=== PATIENT | male | born 1945 | race African-American/Black ===

== ENCOUNTER 2016-10-30 19:54 | Emergency (ER) | payer OTHER ==
[2016-10-30] MEDS ORDERED: CATAPRES PO ONE (20:41)
[2016-10-30 21:42] LABS: MANUAL DIFF NEEDED? NO
[2016-10-30 21:44] LABS: BASO% 0.6 % (0.0-0.8); EOS# 0.26 X1000 (0.0-0.7); EOS% 5.3 % (0.0-10.0); HEMATOCRIT 36.6 % (42.0-52.0); HEMOGLOBIN 12.3 g/dL (14.0-18.0); IMM GRAN# 0.01 X1000 (0.0-0.04); IMM GRAN% 0.2 % (0.0-0.5); LYMPH# 1.71 X1000 (1.2-3.4); LYMPH% 34.8 % (20.5-51.1); MCH 28.5 PG (27-31); MCHC 33.6 g/dL (33-37); MCV 84.9 FL (81-99); MONO# 0.31 X1000 (0.11-0.59); MONO% 6.3 % (1.7-9.3); MPV 10.4 FL (7.4-10.4); NEUT% 52.8 % (42.2-75.2); PLT 220 X1000 (130-400); RBC 4.31 XMIL (4.7-6.1)
[2016-10-30 22:09] LABS: ALBUMIN 3.7 g/dL (3.5-5.0); CALCIUM 9.6 mg/dL (8.8-10.2); POTASSIUM 2.7 mmol/L (3.5-5.1); TOTAL BILIRUBIN 0.2 mg/dL (0.20-1.00); TOTAL PROTEIN 6.5 g/dL (6.3-8.3)
[2016-10-30] MEDS ORDERED: MICRO-K PO ONE (22:16)
--- NOTE | 2016-10-30 22:21 | PROVIDER DOCUMENTATION ---
HPI-General Adult - General Chief Complaint: B/P Problems Stated Complaint: B/P PROBLEMS Time Seen by Provider: 10/30/16 20:40 Source: patient Allergies/Adverse Reactions: Patient Allergies Allergy/AdvReac Type Severity Reaction Status Date / Time No Known Allergies Allergy Verified 10/25/16 05:28 Home Medications: Hydrochlorothiazide [Microzide] 12.5 mg PO DAILY 08/08/12 Simvastatin [Zocor] 20 mg PO DAILY 11/17/12 Aspirin 1 tab PO DAILY 06/26/15 Esomeprazole Magnesium [Nexium] 40 mg PO DAILY 11/24/15 Fluticasone Propionate [Flonase Allergy Relief] 9.9 ml NS DIRECTED 06/09/16 Hydrocodone Bit/Acetaminophen [Hydrocodon-Acetaminophn 10-325] 1 each PO TID PRN 06/09/16 Losartan [Cozaar] 50 mg PO DAILY 06/09/16 Metformin [Glucophage] 500 mg PO BID CC 06/09/16 - History of Present Illness -Gen Adult Nature of Presenting Problems: 70 year old M presents to the ED with a cc of high blood pressure. 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 Pt states that he takes his medications daily. Location of Pain/Injury: reports: none Pain Radiation: reports: no radiation Quality of Pain: reports: none Severity: reports: mild Onset/Duration: reports: this evening Timing: reports: still present Context/Activities at Onset: reports: none Modifying Factors: improves with: nothing Associated Symptoms: reports: other (light headed) Similar Symptoms Previously?: No Recently seen or treated by another doctor?: No Review of Systems - Adult - REVIEW OF SYSTEMS - ADULT Constitutional: denies: chills, fever Eyes: reports: no symptoms reported Ears, Nose, Mouth & Throat: reports: no symptoms reported Cardiovascular: denies: chest pain, palpitations Respiratory: denies: cough, shortness of breath Gastrointestinal: denies: nausea, vomiting Genitourinary: reports: no symptoms reported Musculoskeletal: denies: back pain, neck pain Integumentary: denies: skin sores/ulcer, skin thickening Neurological: reports: other (light headed). denies: headache/migraines Psychiatric: reports: no symptoms reported Endocrine: reports: no symptoms reported Hematologic/Lymphatic: reports: no symptoms reported Allergic/Immunologic: reports: no symptoms reported All Other Systems: Reviewed and Negative Past History - Adult - PAST MEDICAL HISTORY-ADULT Review of Records: reports: Nursing Assessment Review, Medications Reviewed Major Childhood Illnesses: reports: denies history Cardiovascular: reports: HTN, hyperlipidemia Respiratory: denies: COPD Gastrointestinal: reports: GERD Obstetrical/Gynecological: reports: denies history Genitourinary: reports: denies history Musculoskeletal: reports: intervertebral disc disease, chronic pain Neurological: reports: denies history Endocrine/Immune: reports: Diabetes - PRIOR SURGERIES/PROCEDURES Surgical/Procedure History: reports: none - IMMUNIZATION STATUS Childhood Immunizations: See Nurse Assessment Flu Vaccine: See Nurse Assessment - FAMILY HISTORY Family History: reviewed, not pertinent - SOCIAL HISTORY Smoking: cigar, less than 1 pack/day Provider spent 3-5 mins advising pt. on dangers of tobacco.: Discussed manners to quit use, and f/u contacts for add'l counseling. Substance Use: none/never Alcohol Use Frequency: never Physical Exam-General - PHYSICAL EXAM-ADULT Initial Vital Signs Reviewed: Yes - CONSTITUTIONAL General Appearance: appears well, alert, no apparent distress - RESPIRATORY Respiratory: chest non-tender, lungs clear, normal breath sounds - CARDIOVASCULAR Cardiovascular: normal peripheral pulses, regular rate, rhythm, no edema - GASTROINTESTINAL (ABDOMEN) Abdominal Exam: normal bowel sounds, non tender, soft - SKIN Integumentary: normal color, normal turgor, warm/dry - PSYCHIATRIC Psych/Mental Status: normal mood/affect, normal thought content, normal thought process, oriented x 3 Progress - PLAN OF CARE/RESULTS Progress/Plan/Lab Results: plan of care: medications, labs Orders Category Date Time Status CBC WITH ELECTRONIC DIFF [HEME] Stat Lab 10/30/16 21:33 Completed CMP [COMPREHENSIVE METABOLIC PANEL] [CHEM] Stat Lab 10/30/16 21:33 Completed Clonidine [Catapres] Med 10/30/16 20:41 Discontinued 0.1 mg PO NOW ONE Potassium Chloride E.r. [Micro-K] Med 10/30/16 22:16 Discontinued 20 meq PO NOW ONE Laboratory Tests 10/30/16 10/30/16 21:33 21:33 WBC 4.91 RBC 4.31 L Hgb 12.3 L Hct 36.6 L MCV 84.9 MCH 28.5 MCHC 33.6 RDW Std Deviation 13.5 Plt Count 220 MPV 10.4 Immature Gran % (Auto) 0.2 Neut % (Auto) 52.8 Lymph % (Auto) 34.8 [place] % (Auto) 6.3 Eos % (Auto) 5.3 Baso % (Auto) 0.6 Immature Gran # (Auto) 0.01 Neut # (Auto) 2.59 Lymph # (Auto) 1.71 [place] # (Auto) 0.31 Eos # (Auto) 0.26 Baso # (Auto) 0.03 Sodium 134 L Potassium 2.7 L Chloride 100 Carbon Dioxide 27 Anion Gap 6 BUN 11 Creatinine 1.3 H Estimated GFR/1.73 m2 55 BUN/Creatinine Ratio 8 Glucose 100 Calculated Osmolality 268 Calcium 9.6 Total Bilirubin 0.20 AST 12 ALT 11 Alkaline Phosphatase 59 Total Protein 6.5 Albumin 3.7 Globulin 3.0 Albumin/Globulin Ratio 1.0 Vital Signs - 24 hr 10/30/16 10/30/16 20:21 21:23 Temperature 98.3 F Pulse Rate 89 Respiratory 18 Rate Blood Pressure 169/98 148/96 O2 Sat by Pulse 100 Oximetry Pt given results and will be d/c home w/o rx to follow up with PCP. Pt verbally understood instructions. PT remained clinically stable throughout the course of the ED stay and will return if symptoms worsen. Departure - Departure Time of Disposition Order: 22:21 DIAGNOSIS: Hypokalemia Hypertension Qualifiers: Hypertension type: essential hypertension Qualified Code(s): I10 - Essential ( primary) hypertension Disposition: HOME 01 Certified Medical Emergency: Emergent Condition: Good Additional Instructions: Follow up with primary care doctor. Return to ED for any new or worsening symptoms. Establish care with a primary physician by calling the physician referral line below ED Follow Up Instructions: You have been treated by a care provider in the Emergency Department. These instructions are being provided to you so you can have an understanding of how to care for yourself upon discharge. Upon discharge from the Emergency Department, you are responsible for making arrangements for follow-up care by a physician of your choice. Take all prescribed medications as directed. Return to the Emergency Department immediately for any new or worsening symptoms. You may call the Physician Referral phone number at [phone] to obtain a list of Physicians who are taking new patients. Prescriptions: Clonidine HCl 0.1 mg PO TID PRN #30 tablet PRN Reason: hypertension Potassium Chloride E.r. [Micro-K] 10 meq PO BID #60 capsule Attestation - Scribe Verification/Attestation Scribe:: Jewell Johnson Acting as Scribe for:: Narendra Packer Scribhina documention review:: This chart was documented by a scribe and accurately reflects the service the provider performed and the decisions made by the provider. Physician Attestation - Physician Attestation I, the provider, attest to the following statement:: Narendra Packer Physician documentation Attestation:: This documentation recorded by the scribe accurately reflects the service I personally performed and the decisions made by me.
[2016-10-30] MEDS ORDERED: KLOR-CON ONE (22:54)
[2016-10-30 23:02] VITALS: BP 158/99
== END 2016-10-30 22:55 | disposition home or self-care (01) ==
LOC: P.ED 19:54
DX: I10 Essential (primary) hypertension (principal); E87.6 Hypokalemia; R42 Dizziness and giddiness; E78.5 Hyperlipidemia, unspecified; E11.9 Type 2 diabetes mellitus without complications; K21.9 Gastro-esophageal reflux disease without esophagitis; M48.9 Spondylopathy, unspecified; G89.29 Other chronic pain; Z79.899 Other long term (current) drug therapy; F17.210 Nicotine dependence, cigarettes, uncomplicated; Z71.6 Tobacco abuse counseling; Z79.82 Long term (current) use of aspirin
CPT/HCPCS: 80053; 85025; 99283

== ENCOUNTER 2016-11-06 20:12 | Emergency (ER) | payer OTHER ==
[2016-11-06] MEDS ORDERED: ASPIRIN PO STA (20:25)
[2016-11-06] MEDS ORDERED: MORPHINE IV ONE (20:32)
[2016-11-06] MEDS ORDERED: ATIVAN IV ONE (20:33)
[2016-11-06] MEDS ORDERED: ZOFRAN IV ONE (20:33)
--- NOTE | 2016-11-06 20:42 | PROVIDER DOCUMENTATION ---
HPI-Chest Pain - General Chief Complaint: Chest Pain Stated Complaint: CHEST OAIN Time Seen by Provider: 11/06/16 20:25 Source: patient Allergies/Adverse Reactions: Patient Allergies Allergy/AdvReac Type Severity Reaction Status Date / Time No Known Allergies Allergy Verified 10/25/16 05:28 Home Medications: Hydrochlorothiazide [Microzide] 12.5 mg PO DAILY 08/08/12 Simvastatin [Zocor] 20 mg PO DAILY 11/17/12 Aspirin 1 tab PO DAILY 06/26/15 Esomeprazole Magnesium [Nexium] 40 mg PO DAILY 11/24/15 Fluticasone Propionate [Flonase Allergy Relief] 9.9 ml NS DIRECTED 06/09/16 Hydrocodone Bit/Acetaminophen [Hydrocodon-Acetaminophn 10-325] 1 each PO TID PRN 06/09/16 Losartan [Cozaar] 50 mg PO DAILY 06/09/16 Metformin [Glucophage] 500 mg PO BID CC 06/09/16 - History of Present Illness-CP Nature of Presenting Problem: 70 year old M presents to the Ed with a cc of chest pain beginning 1 hour 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 PT denies pain radiation. PT states that he became nausea, dizziness, and nervous. PT states that he took a clonidine 30 minutes 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 Location: reports: substernal Chest Pain Radiation: reports: no radiation Quality of Pain: reports: dull Severity in ED: mild Onset/Duration: 1 hour ago Timing: still present Context/Activities at Onset: reports: none Modifying Factors: improves with: nothing Aspirin Treatment Today: 325 mg x 1 Similar Symptoms Previously?: No Recently Seen Here or By Another Healthcare Provider: No Review of Systems - Adult - REVIEW OF SYSTEMS - ADULT Constitutional: denies: chills, fever Eyes: reports: no symptoms reported Ears, Nose, Mouth & Throat: reports: no symptoms reported Cardiovascular: reports: chest pain. denies: palpitations Respiratory: denies: cough, shortness of breath Gastrointestinal: reports: nausea. denies: vomiting Genitourinary: reports: no symptoms reported Musculoskeletal: reports: no symptoms reported Integumentary: denies: skin sores/ulcer, skin thickening Neurological: reports: no symptoms reported Psychiatric: reports: no symptoms reported Endocrine: reports: no symptoms reported Hematologic/Lymphatic: reports: no symptoms reported Allergic/Immunologic: reports: no symptoms reported All Other Systems: Reviewed and Negative Past History - Adult - PAST MEDICAL HISTORY-ADULT Review of Records: reports: Nursing Assessment Review, Medications Reviewed Major Childhood Illnesses: reports: denies history Cardiovascular: reports: HTN, hyperlipidemia Respiratory: denies: COPD Gastrointestinal: reports: GERD Musculoskeletal: reports: intervertebral disc disease, chronic pain Endocrine/Immune: reports: Diabetes - PRIOR SURGERIES/PROCEDURES Surgical/Procedure History: reports: none - IMMUNIZATION STATUS Childhood Immunizations: See Nurse Assessment Flu Vaccine: See Nurse Assessment - FAMILY HISTORY Family History: reviewed, not pertinent - SOCIAL HISTORY Smoking: cigar Provider spent 3-5 mins advising pt. on dangers of tobacco.: Discussed manners to quit use, and f/u contacts for add'l counseling. Substance Use: none/never Alcohol Use Frequency: never Physical Exam-General - PHYSICAL EXAM-ADULT Initial Vital Signs Reviewed: Yes - CONSTITUTIONAL General Appearance: appears well, alert, no apparent distress - RESPIRATORY Respiratory: chest non-tender, lungs clear, normal breath sounds - CARDIOVASCULAR Cardiovascular: normal peripheral pulses, no edema, tachycardia - GASTROINTESTINAL (ABDOMEN) Abdominal Exam: normal bowel sounds, non tender, soft - MUSCULOSKELETAL Extremity: normal inspection, no pedal edema - SKIN Integumentary: normal color, normal turgor, warm/dry - PSYCHIATRIC Psych/Mental Status: normal mood/affect, normal thought content, normal thought process, oriented x 3 Progress - PLAN OF CARE/RESULTS Progress/Plan/Lab Results: plan of care: labs, medications, EKG, imaging Discussed with pt about importance of follow up with cardiology. PT states that he will follow up with cardiology for a stress test. Orders Category Date Time Status Cardiac Monitoring DIRECTED Care 11/06/16 20:25 Active Oxygen Therapy- ED Nursing DIRECTED Care 11/06/16 20:25 Active Saline Loc NOW Care 11/06/16 20:25 Active CHEST-2 VIEWS [RAD] Stat Exams 11/06/16 20:25 Taken CBC WITH ELECTRONIC DIFF [HEME] Stat Lab 11/06/16 20:35 Completed CK PROFILE [SP CHEM] Stat Lab 11/06/16 20:35 Completed CK PROFILE [SP CHEM] Stat Lab 11/06/16 22:25 Completed COMPREHENSIVE METABOLIC PANEL [CHEM] Stat Lab 11/06/16 20:[address] D-D[address]ER [address] [COAG] Stat Lab 11/06/16 20:35 Completed MAGNESIUM [CHEM] Stat Lab 11/06/16 20:35 Completed PRO B-NATRIURETIC PEPTIDE Stat Lab 11/06/16 20:[address]IME WITH INR PL [COAG] Stat Lab 11/06/16 20:[address] [COAG] Stat Lab 11/06/16 20:35 Completed TROPONIN T Stat Lab 11/06/16 20:35 Completed TROPONIN T Stat Lab 11/06/16 22:25 Completed Aspirin Med 11/06/16 20:25 Discontinued 325 mg PO STAT STA Lorazepam [Ativan] Med 11/06/16 20:33 Discontinued 0.5 mg IV NOW ONE Morphine Med 11/06/16 20:32 Discontinued 4 mg IV NOW ONE Ondansetron [Zofran] Med 11/06/16 20:33 Discontinued 4 mg IV NOW ONE EKG [EKG] Stat Ther 11/06/16 20:25 Ordered EKG [EKG] Stat Ther 11/06/16 22:16 Ordered Laboratory Tests 11/06/16 11/06/16 11/06/16 20:35 20:35 20:35 WBC RBC Hgb Hct MCV MCH MCHC RDW Std Deviation Plt Count MPV Immature Gran % (Auto) Neut % (Auto) Lymph % (Auto) [place] % (Auto) Eos % (Auto) Baso % (Auto) Immature Gran # (Auto) Neut # (Auto) Lymph # (Auto) [place] # (Auto) Eos # (Auto) Baso # (Auto) PT INR APTT (Factor Assay) D-Dimer Sodium 134 L Potassium 3.2 L Chloride 98 Carbon Dioxide 24 L Anion Gap 12 BUN 20 Creatinine 1.4 H Estimated GFR/1.73 m2 50 BUN/Creatinine Ratio 14 Glucose 173 H Calculated Osmolality 275 Calcium 9.5 Magnesium 1.4 L Total Bilirubin 0.30 AST 14 ALT 13 Alkaline Phosphatase 58 Creatine Kinase 218 H Creatine Kinase Index 0.6 CK-MB (CK-2) 1.28 Troponin T < 0.010 [id number] Pept 12 Total Protein 7.4 Albumin 4.2 Globulin 3.0 Albumin/Globulin Ratio 1.0 11/06/16 11/06/16 11/06/16 20:35 20:35 22:25 WBC 6.70 RBC 4.58 L Hgb 13.1 L Hct 38.9 L MCV 84.9 MCH 28.6 MCHC 33.7 RDW Std Deviation 13.8 Plt Count 248 MPV 10.2 Immature Gran % (Auto) 0.1 Neut % (Auto) 46.5 Lymph % (Auto) 43.3 [place] % (Auto) 7.3 Eos % (Auto) 2.1 Baso % (Auto) 0.7 Immature Gran # (Auto) 0.01 Neut # (Auto) 3.11 Lymph # (Auto) 2.90 [place] # (Auto) 0.49 Eos # (Auto) 0.14 Baso # (Auto) 0.05 PT 13.7 INR 1.02 APTT (Factor Assay) 28.9 D-Dimer 0.26 Sodium Potassium Chloride Carbon Dioxide Anion Gap BUN Creatinine Estimated GFR/1.73 m2 BUN/Creatinine Ratio Glucose Calculated Osmolality Calcium Magnesium Total Bilirubin AST ALT Alkaline Phosphatase Creatine Kinase 218 H Creatine Kinase Index 0.6 CK-MB (CK-2) 1.31 Troponin T [id number] Pept Total Protein Albumin Globulin Albumin/Globulin Ratio 11/06/16 22:25 WBC RBC Hgb Hct MCV MCH MCHC RDW Std Deviation Plt Count MPV Immature Gran % (Auto) Neut % (Auto) Lymph % (Auto) [place] % (Auto) Eos % (Auto) Baso % (Auto) Immature Gran # (Auto) Neut # (Auto) Lymph # (Auto) [place] # (Auto) Eos # (Auto) Baso # (Auto) PT INR APTT (Factor Assay) D-Dimer Sodium Potassium Chloride Carbon Dioxide Anion Gap BUN Creatinine Estimated GFR/1.73 m2 BUN/Creatinine Ratio Glucose Calculated Osmolality Calcium Magnesium Total Bilirubin AST ALT Alkaline Phosphatase Creatine Kinase Creatine Kinase Index CK-MB (CK-2) Troponin T < 0.010 [id number]-B-Amjccfqoopu Pept Total Protein Albumin Globulin Albumin/Globulin Ratio Vital Signs - 24 hr 11/06/16 11/06/16 11/06/16 20:19 21:48 23:12 Pulse Rate 130 H 87 79 Respiratory 16 18 15 Rate Blood Pressure 176/103 119/80 117/79 O2 Sat by Pulse 97 96 97 Oximetry Pt given results and will be d/c home w/ rx to follow up with PCP. Pt verbally understood instructions. PT remained clinically stable throughout the course of the ED stay and will return if symptoms worsen. - EKG 1 Time of EKG reading by physician:: 20:20 EKG Read and Signed by:: Narendra Packer EKG Interpretation (*Must complete 3 of following elements*): Abnormal Rate: 114 Rhythm: sinus tachycardia QRS: LVH ST Wave: non-specific ST changes 2 Time of EKG reading by physician:: 22:26 EKG Read and Signed by:: Narendra Packer EKG Interpretation (*Must complete 3 of following elements*): Normal Rate: 81 Rhythm: NSR [place]: normal - XRAY 1 XRAY Study: Chest Impression: Normal XRAY Interpretation: NAD: Dr. Packer Departure - Departure Time of Disposition Order: 23:29 DIAGNOSIS: Chest pain Qualifiers: Chest pain type: unspecified Qualified Code(s): R07.9 - Chest pain, unspecified Disposition: HOME 01 Certified Medical Emergency: Emergent Condition: Good Additional Instructions: Follow up with cardiology. Return to ED for any new or worsening symptoms. ED Follow Up Instructions: You have been treated by a care provider in the Emergency Department. These instructions are being provided to you so you can have an understanding of how to care for yourself upon discharge. Upon discharge from the Emergency Department, you are responsible for making arrangements for follow-up care by a physician of your choice. Take all prescribed medications as directed. Return to the Emergency Department immediately for any new or worsening symptoms. You may call the Physician Referral phone number at [phone] to obtain a list of Physicians who are taking new patients. Referrals: Guilherme Lafleur MD [STAFF PHYSICIAN] - Attestation - Scribe Verification/Attestation Scribe:: Jewell Johnson Acting as Scribe for:: Narendra Packer Scribe documention review:: This chart was documented by a scribe and accurately reflects the service the provider performed and the decisions made by the provider. Physician Attestation - Physician Attestation I, the provider, attest to the following statement:: Narendra Packer Physician documentation Attestation:: This documentation recorded by the scribe accurately reflects the service I personally performed and the decisions made by me.
[2016-11-06 20:47] LABS: MANUAL DIFF NEEDED? NO
[2016-11-06 20:50] LABS: BASO% 0.7 % (0.0-0.8); EOS# 0.14 X1000 (0.0-0.7); EOS% 2.1 % (0.0-10.0); HEMATOCRIT 38.9 % (42.0-52.0); HEMOGLOBIN 13.1 g/dL (14.0-18.0); IMM GRAN# 0.01 X1000 (0.0-0.04); IMM GRAN% 0.1 % (0.0-0.5); LYMPH% 43.3 % (20.5-51.1); MCH 28.6 PG (27-31); MCHC 33.7 g/dL (33-37); MCV 84.9 FL (81-99); MONO# 0.49 X1000 (0.11-0.59); MONO% 7.3 % (1.7-9.3); MPV 10.2 FL (7.4-10.4); NEUT% 46.5 % (42.2-75.2); PLT 248 X1000 (130-400); RBC 4.58 XMIL (4.7-6.1)
[2016-11-06 21:12] LABS: ALBUMIN 4.2 g/dL (3.5-5.0); CALCIUM 9.5 mg/dL (8.8-10.2); MAGNESIUM 1.4 mg/dL (1.5-2.7); POTASSIUM 3.2 mmol/L (3.5-5.1); TOTAL BILIRUBIN 0.3 mg/dL (0.20-1.00); TOTAL PROTEIN 7.4 g/dL (6.3-8.3)
[2016-11-06 21:13] LABS: INR 1.02 (0.86-1.15); PROTIME 13.7 Seconds (12.1-15.5)
[2016-11-06 21:14] LABS: PTT PL 28.9 Seconds (22.6-43.9)
[2016-11-06 21:47] LABS: CK INDEX 0.6 (0.0-2.5); CK-MB 1.28 ng/mL (0.0-5.0)
[2016-11-06 23:22] LABS: CK INDEX 0.6 (0.0-2.5); CK-MB 1.31 ng/mL (0.0-5.0)
[2016-11-06 23:44] VITALS: BP 119/83
--- NOTE | 2016-11-07 00:04 | EKG Report ---
Test Performed on : 11/06/2016 10:26:51 PM Test Reason : cp Blood Pressure : / mmHG Vent. Rate : 081 BPM Atrial Rate : 081 BPM P-R Int : 176 ms QRS Dur : 084 ms QT Int : 370 ms P-R-T Axes : 055 029 024 degrees QTc Int : 429 ms Normal sinus rhythm. Normal ECG When compared with ECG of 06-NOV-2016 20:20, (Unconfirmed) T wave inversion no longer evident in Inferior leads Unconfirmed Result
--- NOTE | 2016-11-07 00:05 | EKG Report ---
Test Performed on : 11/06/2016 8:20:26 PM Test Reason : CHEST PAIN Blood Pressure : / mmHG Vent. Rate : 114 BPM Atrial Rate : 114 BPM P-R Int : 166 ms QRS Dur : 078 ms QT Int : 326 ms P-R-T Axes : 069 056 005 degrees QTc Int : 449 ms Sinus tachycardia. Voltage criteria for left ventricular hypertrophy T wave abnormality, consider inferior ischemia Abnormal ECG When compared with ECG of 21-JUL-2016 15:19, No significant change was found Unconfirmed Result
--- NOTE | 2016-11-07 06:54 | Diag Imaging Result Document ---
PROCEDURE NAME: CHEST-2 VIEWS - 11/06/2016 FRONTAL AND LATERAL CHEST, TWO VIEWS: COMPARISON: 07/21/2016. FINDINGS: The lungs are well expanded. The heart is not enlarged. The vessels are not distended. No pneumonia. No pleural effusions. There are calcified left hilar lymph nodes. Pypz-[id number]-sbagpuhj scoliosis. No free air beneath the diaphragm. IMPRESSION: No acute abnormality.
== END 2016-11-06 23:43 | disposition home or self-care (01) ==
LOC: P.ED 20:12
DX: R07.9 Chest pain, unspecified (principal); R11.0 Nausea; R42 Dizziness and giddiness; I10 Essential (primary) hypertension; E78.5 Hyperlipidemia, unspecified; K21.9 Gastro-esophageal reflux disease without esophagitis; E11.9 Type 2 diabetes mellitus without complications; R00.0 Tachycardia, unspecified; Z79.899 Other long term (current) drug therapy; G89.29 Other chronic pain; M48.9 Spondylopathy, unspecified; F17.290 Nicotine dependence, other tobacco product, uncomplicated; Z71.6 Tobacco abuse counseling; Z79.82 Long term (current) use of aspirin; Z79.51 Long term (current) use of inhaled steroids
CPT/HCPCS: 71020; 80053; 82550; 82553; 83735; 83880; 84484; 85025; 85379; 85610; 85730; 93005; 96374; 96375; J2060; J2270; J2405